=== PATIENT | male | born 1965 | race Caucasian/White ===

== ENCOUNTER → 2024-07-28 06:21 | Day surgery (SDC) | payer BC, SELFPAY | LOC: GI 06:21 | PROVIDERS: ATTENDING PHYSICIAN Internal Medicine Gastroenterology | DX: Z12.11 Encounter for screening for malignant neoplasm of colon (principal); K64.8 Other hemorrhoids; D12.2 Benign neoplasm of ascending colon; D12.3 Benign neoplasm of transverse colon; K63.5 Polyp of colon | CPT/HCPCS: 45385; 45380; 88305 ==